=== PATIENT | male | born 1960 | race African-American/Black ===

== ENCOUNTER 2017-10-22 12:44 | Day surgery (SDC) | payer OTHER ==
[2017-10-22] MEDS ORDERED: MIDAZOLAM 1 MG/ML 2 ML INJ ×2 (14:43)
[2017-10-22] MEDS ORDERED: FENTAnyl 50 MCG/ML VIAL (14:43)
== END 2017-10-22 15:14 | disposition home or self-care (01) ==
LOC: GIL 12:44
DX: Z12.11 Encounter for screening for malignant neoplasm of colon (principal); D12.3 Benign neoplasm of transverse colon; Z80.0 Family history of malignant neoplasm of digestive organs
CPT/HCPCS: 45380; 88305

== ENCOUNTER 2018-05-11 01:27 | Emergency (ER) | payer OTHER ==
[2018-05-11 03:01] LABS: ADD UMIC YES; UR ASCORBIC ACID NEGATIVE (NEGATIVE); UR BACTERIA FEW /HPF (NONE SEEN); UR BILIRUBIN (Dip) NEGATIVE (NEGATIVE); UR BLOOD (Dip) 2+ mg/dL (NEGATIVE); UR CLARITY CLEAR (CLEAR); UR COLOR STRAW (YELLOW); UR GLUCOSE (Dip) NEGATIVE (NEGATIVE); UR KETONES (Dip) NEGATIVE (NEGATIVE); UR LEUKOCYTE ESTERASE (Dip) 3+ Leu/ul (NEGATIVE); UR NITRITE (Dip) NEGATIVE (NEGATIVE); UR RBC 4 /HPF (0-5); UR SPECIFIC GRAVITY (Dip) 1.005 (1.003-1.030); UR TOTAL PROTEIN (Dip) NEGATIVE (NEGATIVE); UR UROBILINOGEN (Dip) NEGATIVE (NEGATIVE); UR WBC 24 /HPF (0-5)
[2018-05-11] MEDS: KETOROLAC 30 MG INJ IV (03:52)
[2018-05-11] MEDS: ONDANSETRON 4 MG INJ IV (03:53)
[2018-05-11] MEDS: SOD CHLORIDE 0.9% 500 ML IV (03:53)
== END 2018-05-11 06:00 | disposition home or self-care (01) ==
LOC: E/R 01:27
DX: N39.0 Urinary tract infection, site not specified (principal); I10 Essential (primary) hypertension; Z87.891 Personal history of nicotine dependence
CPT/HCPCS: 81001; 96374; 96375; 99284-25